=== PATIENT | female | born 1985 | race Caucasian/White ===

== ENCOUNTER 2017-11-16 14:25 | Emergency (ER) | payer OTHER ==
[~2017-11-16] VITALS: Ht 167.6 cm; Wt 72.6 kg
[2017-11-16] MEDS ORDERED: TAMIFLU 75MG CA75 MG PO (16:08)
== END 2017-11-16 16:15 | disposition home or self-care (01) ==
LOC: ED 14:25
DX: B34.9 Viral infection, unspecified (principal); F17.200 Nicotine dependence, unspecified, uncomplicated